=== PATIENT | female | born 1935 | race Caucasian/White ===

== ENCOUNTER → 2016-05-28 17:48 | Outpatient (CLI) | payer MEDICARE ==
[2015-03-29 13:45] VITALS: BMI 23.4
[~2016-05-28 17:48] MED LIST: ASPIRIN325 MG PO; COLACE100 MG PO; CYCLOBENZAPRINE5 MG PO; FISH OIL 1,0001 CA1 PO; HYDROCHLOROTHIA25 MG PO; HYDROCODON-ACE1 EAC7 PO; K-DUR20 MEQ PO; LASIX40 MG PO; MULTI-DAY VITAM1 TAB PO; PROVENTIL HFA6.7 GM INH; RED YEAST RICE600 MG PO; VASOTEC2.5 MG PO; VITAMIN A10000 UNIT PO; VITAMIN D31000 UNIT PO; VITAMIN E400 UNI2 PO
[2016-05-28 18:28] LABS: BASOPHILS 0.5 % (0.0-2.0); EOSINOPHILS 1.2 % (0-7); HEMATOCRIT 37.6 % (36.0-48.0); IMMATURE GRANULOCYTES 0.2 % (0-5); LYMPHOCYTES 48.9 % (15-50); MCH 31.4 pg (26.0-34.0); MCHC 31.9 g/dL (31.0-37.0); MCV 98.4 fL (80.0-100.0); MONOCYTES 9.4 % (2-11); NEUTROPHILS 39.8 % (40-80); PLATELET COUNT 183 10x3/uL (130-400); RBC 3.82 10x6/uL (4.00-5.40); RDW 13.8 % (11.5-14.5); WBC 4.1 10x3/uL (4.8-10.8)
[2016-05-28 19:13] LABS: ANION GAP 14.6 mmol/L (8-16); CALCIUM 8.6 mg/dL (8.5-10.1); CARBON DIOXIDE 27.2 mmol/L (21.0-32.0); CREATININE - SERUM 1.1 mg/dL (0.6-1.3); POTASSIUM - SERUM 3.8 mmol/L (3.5-5.1)
== END | disposition home or self-care (01) ==
LOC: D.LABREF 17:48
PROVIDERS: Emergency Medicine
DX: J44.9 Chronic obstructive pulmonary disease, unspecified (principal)

== ENCOUNTER → 2017-05-16 11:09 | Outpatient (CLI) | payer MEDICARE ==
[2015-03-29 13:45] VITALS: BMI 23.4
[2017-05-20 07:09] LABS: IMMUNOGLOBULIN E 11 IU/mL (0-100)
== END | disposition home or self-care (01) ==
LOC: D.RT 04-01 11:00 → D.LAB 04-01 11:00 → D.RAD 04-01 11:00 → D.RT 04-01 11:45 → D.LAB 04-01 12:00 → D.RAD 04-01 13:00 → D.RT 11:09
PROVIDERS: Internal Medicine Pulmonary Disease
DX: J45.909 Unspecified asthma, uncomplicated (principal)

== ENCOUNTER 2020-06-01 18:03 | Emergency (ER) | payer MEDICARE ==
[~2020-06-01] VITALS: Ht 152.4 cm; Wt 81.8 kg
[2020-06-01 18:12] VITALS: Ht 152.4 cm; Wt 81.8 kg
[2020-06-01 18:33] LABS: BASOPHILS 0.2 % (0-2); EOSINOPHILS 0.1 % (0-7); IMMATURE GRANULOCYTES 0.5 % (0-5); LYMPHOCYTE ABS# 1.61 10x3/uL (1.18-3.74); LYMPHOCYTES 18.9 % (15-50); MCH 31.2 pg (26.0-34.0); MCHC 32.3 g/dL (31.0-37.0); MCV 96.6 fL (80.0-100.0); MEAN PLATELET VOLUME 11.1 fL (7.4-10.4); MONOCYTES 7.4 % (2-11); NEUTROPHIL ABS# 6.19 10x3/uL (1.56-6.13); NEUTROPHILS 72.9 % (40-80); PLATELET COUNT 204 10x3/uL (130-400); RBC 3.21 10x6/uL (4.00-5.40); RDW 14.2 % (11.5-14.5); WBC 8.5 10x3/uL (4.8-10.8)
[2020-06-01 18:49] LABS: APTT 31.5 SECONDS (22.8-39.4); CALC OSMOLALITY 287 mosm/kg (275-300); CALCIUM 8.5 mg/dL (8.5-10.1); CARBON DIOXIDE 24.6 mmol/L (21.0-32.0); CHLORIDE - SERUM 105 mmol/L (98-107); CREATININE - SERUM 1.3 mg/dL (0.6-1.3); GLUCOSE 123 mg/dL (74-106); INR 1.36 (0.85-1.17); POTASSIUM - SERUM 3.7 mmol/L (3.5-5.1); PROTIME 15.5 SECONDS (11.6-15.0); SODIUM 143 mmol/L (136-145); UREA NITROGEN 19 mg/dL (7-18); eGFR NON AFRICAN AMERICAN 41 mL/min (90-120)
[2020-06-01 19:11] LABS: ALBUMIN 2.1 g/dL (3.4-5.0); ALKALINE PHOSPHATASE 153 U/L (30-120); ALT (SGPT) 38 U/L (10-68); BILIRUBIN - TOTAL 1.49 mg/dL (0.2-1.3); CREATINE KINASE 157 UL (21-215); PRO BNP 4453 pg/mL (0-450); PROTEIN - SERUM 6.6 g/dL (6.4-8.2)
[2020-06-01 19:18] LABS: D-DIMER-QUANTITATIVE > 20.00 ug/mLFEU (0.20-0.54)
[2020-06-01 19:25] LABS: TROPONIN-I 0.338 ng/mL (0.000-0.060)
[2020-06-01] MEDS ORDERED: ALBUTEROL SULF8.5 GM INH (19:44)
[2020-06-01] MEDS ORDERED: VIBRAMYCIN 100100 MG PO (19:44)
[2020-06-01] MEDS ORDERED: OMNICEF300 MG PO (19:44)
[2020-06-01 20:28] VITALS: BP 132/60
== END 2020-06-01 19:42 | disposition left against medical advice (07) ==
LOC: D.ER 18:03
PROVIDERS: Family Medicine
DX: R05 Cough (principal); J80 Acute respiratory distress syndrome; Z20.822 Contact with and (suspected) exposure to COVID-19; N18.9 Chronic kidney disease, unspecified; R79.1 Abnormal coagulation profile; R79.89 Other specified abnormal findings of blood chemistry; R09.02 Hypoxemia; J18.9 Pneumonia, unspecified organism; R06.03 Acute respiratory distress; I10 Essential (primary) hypertension; J45.909 Unspecified asthma, uncomplicated; Z53.29 Procedure and treatment not carried out because of patient's decision for other reasons